=== PATIENT | male | born 1975 ===

== ENCOUNTER 2018-10-07 14:37 | Outpatient (CLI) | payer OTHER ==
[~2018-10-07] VITALS: Ht 182.9 cm; Wt 87.5 kg
== END 2018-10-07 15:00 | disposition home or self-care (01) ==
LOC: OFIC 805 14:37
DX: R09.81 Nasal congestion (principal); J32.8 Other chronic sinusitis; G50.1 Atypical facial pain

== ENCOUNTER 2018-11-22 10:54 | Outpatient (CLI) | payer OTHER ==
[~2018-11-22] VITALS: Ht 182.9 cm; Wt 87.5 kg
== END 2018-11-22 11:15 | disposition home or self-care (01) ==
LOC: OFIC 805 10:54
DX: R09.81 Nasal congestion (principal); J32.8 Other chronic sinusitis; G50.1 Atypical facial pain

== ENCOUNTER 2025-10-02 14:08 | Outpatient (CLI) | payer OTHER | END 2025-10-02 14:17 | disposition home or self-care (01) | LOC: LAB 14:08 | PROVIDERS: ATTEND Specialist | DX: L02.91 Cutaneous abscess, unspecified (principal) ==